=== PATIENT | female | born 1960 | race Caucasian/White ===

== ENCOUNTER → 2023-05-15 17:05 | Outpatient (BNVA) | payer MEDICARE, SELFPAY | PROVIDERS: PCP Nurse Practitioner; Referring Provider Nurse Practitioner; Visit Provider Internal Medicine Pulmonary Disease | DX: R06.02 Shortness of breath (principal); E88.01 Alpha-1-antitrypsin deficiency; J43.2 Centrilobular emphysema | CPT/HCPCS: 82785; 85025; 86003; 99204 ==

== ENCOUNTER 2023-06-07 12:31 | Outpatient (CLI) | payer MEDICARE, MEDICAID, SELFPAY ==
[2023-06-07 13:09] VITALS: PULSE 108; RESP 20; O2SAT 94
[2023-06-07] MEDS: albuterol 2.5 mg/3 mL Neb INHALATION (13:11)
[2023-06-07 13:13] VITALS: PULSE 121
== END 2023-06-07 12:32 | disposition home or self-care (01) ==
PROVIDERS: PCP Nurse Practitioner; Visit Provider Internal Medicine Pulmonary Disease
DX: J44.9 Chronic obstructive pulmonary disease, unspecified (principal)
CPT/HCPCS: 94060; 94618; 94726; 94729; J7613

== ENCOUNTER 2023-06-13 10:04 | Oncology outpatient (recurring) (ONCR) | payer MEDICARE, MEDICAID, SELFPAY ==
[2023-05-22] MEDS: [UNRECOGNIZED DRUG - MIXTURE] 235.800000000000011 MG IV (13:20)
[2023-05-22 13:49] VITALS: BP 122/65; PULSE 74; RESP 17; TEMP 36.8; O2SAT 94
[2023-05-30] MEDS: [UNRECOGNIZED DRUG - MIXTURE] 235.800000000000011 MG IV (12:02)
[2023-05-30 12:38] VITALS: BP 137/76; PULSE 74; RESP 16; TEMP 36.3; O2SAT 98
[2023-05-30 12:41] VITALS: BP 112/74; PULSE 78; RESP 16; TEMP 36.4; O2SAT 93
[2023-05-30 12:42] VITALS: BP 112/14; PULSE 74; RESP 16; TEMP 36.4; O2SAT 93
[2023-06-07 14:41] VITALS: BP 111/74; PULSE 88; RESP 16; TEMP 36.4; O2SAT 97
[2023-06-07] MEDS: [UNRECOGNIZED DRUG - MIXTURE] 320 MG IV (14:56)
[2023-06-07 15:36] VITALS: BP 112/68; PULSE 74; RESP 16; TEMP 36.2
[2023-06-13 10:49] VITALS: BP 126/77; PULSE 94; RESP 16; TEMP 36.8; O2SAT 92
[2023-06-13] MEDS: [UNRECOGNIZED DRUG - MIXTURE] 235.800000000000011 MG IV (11:35)
[2023-06-13 12:02] VITALS: BP 142/77; PULSE 74; TEMP 36.2; O2SAT 92
== END 2023-06-13 23:59 | disposition home or self-care (01) ==
PROVIDERS: PCP Nurse Practitioner; Visit Provider Internal Medicine Pulmonary Disease
DX: E88.01 Alpha-1-antitrypsin deficiency (principal); Z53.9 Procedure and treatment not carried out, unspecified reason
CPT/HCPCS: 96365; 96374; J0256

== ENCOUNTER 2023-07-17 13:03 | Oncology outpatient (recurring) (ONCR) | payer MEDICARE, MEDICAID, SELFPAY ==
[2023-06-20] MEDS: [UNRECOGNIZED DRUG - MIXTURE] 240 MG IV (14:27)
[2023-06-20 14:53] VITALS: BP 113/77; PULSE 68; RESP 18; O2SAT 97
[2023-06-27] MEDS: [UNRECOGNIZED DRUG - MIXTURE] 240 MG IV (15:32)
[2023-06-27 15:54] VITALS: PULSE 91; RESP 16; TEMP 36.7; O2SAT 95
[2023-07-03 12:56] VITALS: BP 130/78; PULSE 78; RESP 16; TEMP 36.4; O2SAT 92
[2023-07-03] MEDS: [UNRECOGNIZED DRUG - MIXTURE] 240 MG IV (13:58)
[2023-07-03 14:40] VITALS: BP 113/70; PULSE 94; RESP 16; TEMP 36.4; O2SAT 92
[2023-07-17 13:26] VITALS: BP 115/76; PULSE 67; RESP 16; TEMP 36.8; O2SAT 92
[2023-07-17] MEDS: [UNRECOGNIZED DRUG - MIXTURE] 240 MG IV (13:58)
[2023-07-17] MEDS: sodium chloride 0.9% 250 ML 75 ML IV (13:58)
[2023-07-17 14:39] VITALS: BP 96/67; PULSE 77; RESP 18; TEMP 36.7; O2SAT 94
== END 2023-07-17 23:59 | disposition home or self-care (01) ==
PROVIDERS: PCP Nurse Practitioner; Visit Provider Internal Medicine Pulmonary Disease
DX: E88.01 Alpha-1-antitrypsin deficiency (principal); Z53.9 Procedure and treatment not carried out, unspecified reason
CPT/HCPCS: 96365; J0256; J7050

== ENCOUNTER 2023-08-15 12:45 | Oncology outpatient (recurring) (ONCR) | payer MEDICARE, MEDICAID, SELFPAY | END 2023-08-17 23:59 | disposition home or self-care (01) | LOC: ONCMED 08-23 10:06 | PROVIDERS: PCP Nurse Practitioner; Visit Provider Internal Medicine Pulmonary Disease | DX: E88.01 Alpha-1-antitrypsin deficiency (principal); J43.2 Centrilobular emphysema; J44.1 Chronic obstructive pulmonary disease with (acute) exacerbation | CPT/HCPCS: 99214 ==

== ENCOUNTER 2025-01-05 14:39 | Emergency (ER) | payer MEDICARE, MEDICAID, SELFPAY ==
[2025-01-05 14:43] VITALS: BP 125/82; PULSE 78; RESP 17; TEMP 36.7; O2SAT 93; BMI 27.1
--- NOTE | 2025-01-05 14:59 | XRR_ITS ---
PROCEDURE INFORMATION: Exam: XR Chest Exam date and time: 01/05/2025 3:19 PM Age: 64 years old Clinical indication: Cough and shortness of breath TECHNIQUE: Imaging protocol: Radiologic exam of the chest. Views: 1 view. COMPARISON: l spine FINDINGS: Lungs: Scarring in the lung bases. Pleural spaces: No pleural effusion or pneumothorax noted. Heart/Mediastinum: There is no cardiomegaly. Bones/joints: No acute osseous abnormality. Intraperitoneal space: There is no free intraperitoneal gas. XR/XR chest 1V portable 19033 IMPRESSION: No acute findings.
--- OUTSIDE RECORDS SUMMARY | 2025-01-05 15:30 | XMS_ITS | Clinical Summary ---
Author Organization [facility] [address] [facility] Address [address] [place] [address] Phone Care Team Providers Care Supervisor Special Education Name Role Phone Cc Amb, Physician Pc MD Primary Care Provider Un available Allergies Active Allergy Reactions Criticality Noted Date Comments Doxycycline Rash Low 10/23/2022 Vancomycin Itching Low 10/23/2022 Medications multivitamin (DAILY-ELVIS) tablet Take 1 Tablet by mouth daily. Active proteinase inhibitor (human) 1,000 mg Recon Soln 60 mg/kg Inject 60 mg/kg by intravenous injection every 7 days. Active calcium citrate-vitamin d3 (CITRACAL D MAX) 315 mg-6.25 mcg (250 unit) Tablet Take by mouth daily. Active magnesium oxide (MAG-OX) 400 mg (241.3 mg magnesium) tablet Take 400 mg by mouth daily. Active viatamin B complex-vitamin V-cueqqpcj-wmpo- folic acid 106 mg iron- 1 mg Tablet Take 1 Tablet by mouth daily. Active CYANOCOBALAMIN, VITAMIN B-12, ORAL Take by mouth. Activ e albuterol sulfate HFA 90 mcg/actuation aerosol inhaler Take 2 Puffs by inhalation every 6 hours as needed for Shortness of Breath, Respiration or Wheezing. 8.5 Gram 1 3 Active OTHERIndications :Zzphe-8-jyonptm psin deficiency,Recur rent upper respiratory infection (URI),Rhonchus Afflovest to use twice daily to assist in loosening of secretions for expectoration. 1 Each 3 Active Additional Information Patient not taking.Reported on 10/17/2023 shower chair DME EQUIPMENTIndicat ions:Shortness of breath,Generaliz ed muscle weakness by See Admin Instructions route daily. 1 Each 3 Active Additional Information Patient not taking.Reported on 10/17/2023 fluticasone-umec lidinium-vilante rol (Trelegy Ellipta) 100-62.5-25 mcg Disk with Device Take 1 Puff by inhalation daily. 60 Each 3 3 Active ipratropium-albu teroL (DUONEB) 0.5 mg-3 mg(2.5 mg base)/3 mL Solution for Nebulization Take 3 mL by inhalation 4 times daily. 360 mL 5 3 Active Miscellaneous Medical Supply Plasma infusions either weekly and/or biweekly 1 Each 3 Active hydrOXYzine HCL (ATARAX) 25 mg tablet Take 25 mg by mouth daily at bedtime. 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 Encounters Date Type Department Care Team Description 01/05/2025 Telephone [facility] Pulmonology [facility] [address] [place] [id number] RuthrChapito MD [facility] 12/17/2024 Telephone [facility] Pulmonology [place] [place] [id number] DatarChapito MD [employer] 12/02/2024 External Device Data [facility] Provider, Abstract 10/21/2024 External Device Data [facility] Provider, Abstract from Last 3 Months Social History Tobacco Use Types Packs/Day Years Used Date Smoking Tobacco: Never Tobacco Cessation:Counseling Given: No Alcohol Use Standard Drinks/Week Comments Not Currently 0 (1 standard drink = 0.6 oz pur e alcohol) Comments No Sex and Gender Information Value Date Recorded Sex Assigned at Not on file Legal Sex Female 11:16 AM CDT Gender Identity Not on file Sexual Orientation Not on file Last Filed Vital Signs Vital Sign Reading Time Taken Comments Blood Pressure 110/62 02/06/2023 3:23 PM RESIDENTIAL APPRAISER Pulse 110 02/06/2023 3:23 PM RESIDENTIAL APPRAISER Temperature 36.4 C (97.6 F) 02/06/2023 3:23 PM RESIDENTIAL APPRAISER Respiratory Rate 22 02/06/2023 3:23 PM RESIDENTIAL APPRAISER Oxygen Saturation 98% 02/06/2023 3:23 PM RESIDENTIAL APPRAISER Inhaled Oxygen Concentration - - Weight 59.9 kg (132 lb) 10/17/2023 10:57 AM CDT Height 161.3 cm (5' 3.5 ) 10/17/2023 10:57 AM CD T Body Mass Index 23.02 10/17/2023 10:57 AM CDT Plan of Treatment Health Maintenance Due Date Last Done Comments DTAP/TDAP/TD VACCINES (1 - Tdap) 1977 BREAST CANCER SCREENING 1998 COLORECTAL SCREENING 12/05/2003 Colorectal Cancer Screening 12/05/2003 FIT-DNA Q 3 years 12/05/2003 FIT/FOBT Q 1 year 12/05/2003 Flex Sig/CT Colonography Q 5 years 12/05/2003 PNEUMOCOCCAL VACCINE 50+ YEARS (1 of 1 - PCV) 12/05/19 09 RSV VACCINE (60+ or ) (1 - Risk 50-74 years 1-dose series) 2008 ZOSTER VACCINE (1 of 2) 2008 OSTEOPOROSIS SCREENING 12/05/2023 Medicare Ad[place] ([place]) Prev entative Visit/Annual Wellness Visit 03/19/2024 INFLUENZA VACCINE (#1) 2024 Insurance MEDICAID [facility] Care Teams Supervisor Special Education Relationship Specialty Start Date End Date Cc Tala, Physician Pc, MD PCP - General Family Practice 08/22/24
--- OUTSIDE RECORDS SUMMARY | 2025-01-05 15:30 | XMS_ITS | Encounter Summary ---
Author Organization [facility] Address [address] [place] [address] Care Team Providers Care Glost Kiln Placer Name Role Phone Cc Amb, Physician Pc Primary Care Provider Un available Reason for Visit * Reason Onset Date Comments [facility] 01/05/2025 Encounter Details Date Type Department Care Team (Late st Contact Info) Description 01/05/2025 Telephone [facility] Pulmonology [facility] [address] [place] [address] Datar, MD [place] [address] [place] [address] [facility] Social History Tobacco Use Types Packs/Day Years Used Date Smoking Tobacco: Never Alcohol Use Standard Drinks/Week Comments Not Currently 0 (1 standard drink = 0.6 oz pur e alcohol) Comments No Sex and Gender Information Value Date Recorded Sex Assigned at Not on file Legal Sex Female 11:16 AM CDT Gender Identity Not on file Sexual Orientation Not on file documented as of this encounter Miscellaneous Notes * Telephone Encounter - Kristin Castañeda - 01/05/2025 10:58 AM CDT Telephone Encounter - Patient: Ginette Date: 01/05/2025 Caller: Maki from [employer] Message: Maki from [employer] called regarding patient Ginette and requested a return call. Action Requested: Please return the call to [phone], option 1, then option 2. documented in this encounter Plan of Treatment Not on file documented as of this encounter Visit Diagnoses Not on filedocumented in this encounter Additional Health Concerns Assessment Noted Time PHQ-9 Depression Total Score: 6 10/24/19 23 3:01 PM CDT documented as of this encounter Care Teams Glost Kiln Placer Relationship Specialty Start Date End Date Cc Tala, Physician Pc, MD PCP - General Family Practice 08/22/24 documented as of this encounter
--- NOTE | 2025-01-05 17:04 | ED_ITS ---
HPI - URI/Sore Throat General: Chief Complaint: Upper Respiratory Infection Stated Complaint: low o2 Time Seen by Provider: 01/05/25 16:57 Source: patient Mode of arrival: ambulatory Limitations: no limitations History of Present Illness: Patient is a 64-year-old female with a history of alpha 1 antitrypsin deficiency here with a complaint of cough/chest congestion. She states symptoms have been present over the past several days. She was recently seen and placed on Augmentin and a steroid taper. Patient here today requesting a chest x-ray. Patient does follow-up with pulmonology in [place]. She is not requiring more than her baseline oxygen. MD elicited complaint: cough Onset (ago): day(s) Severity: moderate Description of mucous: clear Able to tolerate fluids by mouth: Yes Exacerbating factors: nothing Relieving factors: nothing Associated symptoms: Deny abdominal pain, chills, chest pain, diarrhea, fever(s), nausea or vomiting Treatments prior to arrival: antibiotics Related Data Home Medications ?Medication ?Instructions ?Recorded ?Confirmed oxygen-air delivery systems 05/15/23 01/02/25 Previous Rx's ?Medication ?Instructions ?Recorded alpha-1 proteinase inhib.(hum) 3,933 mg (78.66 mL) IV ONCE #1 ea 05/16/23 1,000 mg (+/-)/20 mL IV solution (Prolastin-C) hydroxyzine HCl 25 mg tablet See Rx Instructions .Rout e 10/17/23 .COMPLEX #90 tabs miscellaneous medical supply See Rx Instructions misce llaneous 11/06/23 .COMPLEX #1 ea fzjuyzyfwdpcfkv-bpdvatkgystmiwx-FM 5 ml PO QID PRN all ergy symptoms 04/15/24 2 mg-30 mg-10 mg/5 mL oral syrup #118 mL (Bromfed DM) fluticasone fur. 100 mcg-umeclid See Rx Instructions . Route 09/18/24 62.5 mcg-vilant 25 mcg .COMPLEX #60 ea inhalat.powder (Trelegy Ellipta) albuterol sulfate 90 mcg/actuation See Rx Instructions .Route 11/11/24 aerosol inhaler .COMPLEX #9 grams amoxicillin 875 mg-potassium 1 tab PO BID #20 tabs clavulanate 125 mg tablet prednisone 20 mg tablet See Rx Instructions PO DAILY #11 01/02/25 tabs Allergies Allergy/AdvReac Type Severity Reaction Status Date / Time vancomycin Allergy Intermediate numbness Verified 01/02/25 14:21 Review of Systems Const: Denies: fever(s), chills, body aches, fatigue or malaise Card: Denies: chest pain, palpitations, irregular heart rhythm, edema, lightheadedness, syncope or pre-syncope Resp: Reports: dyspnea (chronic), productive cough and chest congestion GI: Denies: abdominal pain, nausea, vomiting or diarrhea : Denies: flank pain, dysuria or hematuria Musc: Denies: extremity swelling PFSH ED PFSH: Medical History Emphysema lung Dywkp-1-ijkbywxdmcv deficiency COPD (chronic obstructive pulmonary disease) Family History Mother Pfmrq-0-ikjroylmofb deficiency CAD (coronary artery disease) Father Oyvbk-7-ltghucscwgq deficiency Cancer Diabetes Hypertension Social History Smoking and tobacco/nicotine status: never used tobacco/nicotine Alcohol intake: never Substance/Drug Use: never Lives independently: No Household members: children Housing: House Marital status: Number of children: 1 Pets and animals: Yes Pets & animals: cat(s) Physical Exam Const: COMMON NORMALS: no acute distress, average body habitus, patient oriented x3, no limitations, healthy appearing, alert and well nourished GENERAL APPEARANCE: cooperative Resp: COMMON NORMALS: normal respiratory effort and clear to auscultation bilaterally AUSCULTATION: clear to auscultation bilaterally Cardio: COMMON NORMALS: regular rate and regular rhythm RATE: regular rate RHYTHM: regular rhythm Neuro: COMMON NORMALS: patient oriented x3 SENSORIUM/ORIENTATION: Yes alert Course Vital Signs: Vital signs: Vital Signs Temperature 98.1 F 01/05/25 14:43 Pulse Rate 78 01/05/25 14:43 Respiratory Rate 17 01/05/25 14:43 Blood Pressure 125/82 01/05/25 14:43 Pulse Oximetry 93 01/05/25 14:43 Oxygen Delivery Me thod Room Air 01/05/25 14:43 MDM - URI/Sore Throat Medical Decision Making CXR obtained and unremarkable. Her vital signs are stable. She is not requiring additional oxygen apart from her baseline. Patient declines any further workup here in the emergency department and feels comfortable going home continuing current treatment plan of antibiotics and steroids. Plan will be to for follow-up with pulmonology which she has scheduled for January 20. Differential Diagnosis Likely upper respiratory infection, viral infection and bronchitis Medical Records I reviewed the patient's medical records. Lab Data Radiology Impressions Chest X-Ray 01/05/25 14:59 IMPRESSION: No acute findings. All radiology interpretation(s) finalized by discharge Discharge Plan Discharge Patient Disposition: Home Clinical Impression: Mclyw-2-hzjwtmjkkrf deficiency Condition: Stable Prescriptions: No Action (DME) oxygen-air delivery systems Device See Rx Instructions .Route Rx Instructions: As directed Prolastin-C 1,000 mg (+/-)/20 mL solution 3,933 mg IV ONCE Qty: 1 11RF Rx Instructions: Weekly Infusion hydroxyzine HCl 25 mg tablet See Rx Instructions .ROUTE .COMPLEX Qty: 90 1RF Dose Instruction: TAKE 1 TABLET BY MOUTH AT BEDTIME NEEDED FOR SLEEP Rx Instructions: TAKE 1 TABLET BY MOUTH AT BEDTIME NEEDED FOR SLEEP dnxhbgntsqbwuqt-zqsomgjxc-VA [Bromfed DM] 2-30-10 mg/5 mL syrup 5 ml PO QID PRN (Reason: allergy symptoms) Qty: 118 0RF prednisone 20 mg tablet See Rx Instructions PO DAILY Qty: 11 0RF Rx Instructions: orally daily; Take 2 tabs daily x 3 days Take 1 tab daily x 3 days Take 1/2 tab daily x 4 days amoxicillin-pot clavulanate 875-125 mg tablet 1 tab PO BID Qty: 20 0RF miscellaneous medical supply [facility] See Rx Instructions miscellaneous .COMPLEX Qty: 1 0RF Rx Instructions: Electric wheelchair Trelegy Ellipta 100-62.5-25 mcg blister with device See Rx Instructions .ROUTE .COMPLEX Qty: 60 6RF Dose Instruction: Inhale 1 puff by mouth once daily Rx Instructions: Inhale 1 puff by mouth once daily albuterol sulfate 90 mcg/actuation HFA aerosol inhaler See Rx Instructions .ROUTE .COMPLEX Qty: 9 2RF Dose Instruction: INHALE 2 PUFFS BY MOUTH EVERY 6 HOURS NEEDED FOR SHORTNESS OF BREATH FOR WHEEZING Rx Instructions: INHALE 2 PUFFS BY MOUTH EVERY 6 HOURS NEEDED FOR SHORTNESS OF BREATH FOR WHEEZING Discharge Orders: Discharge ED (Routine); Ordered 01/05/25 Ordered By: Leilani Malin Referrals: Barb Harding FNP [Primary Care Provider, Nurse Practitioner] Patient Instructions: Patient Portal & Michael Instructions Activity Restrictions/Additional Instructions: As we discussed, continue current antibiotic and steroid course. Plan to follow-up with your portfolio director in a few weeks as scheduled. You may return to the emergency department at any time for onset of worsening shortness of breath or difficulty breathing, requiring more oxygen than baseline, fevers, or any other concerns you may have. Print Language: Indonesian Coding Level of Care Code ED Tin Can Feeder for Michaelle Hillman
--- NOTE | 2025-01-05 17:22 | PC.NURSE ---
PT is declining any further testing. PT states she only wanted a chest xray
[2025-01-05 17:26] VITALS: PULSE 75; O2SAT 95
== END 2025-01-05 17:27 | disposition home or self-care (01) ==
PROVIDERS: Emergency Provider Physician Assistant; PCP Nurse Practitioner
DX: E88.01 Alpha-1-antitrypsin deficiency (principal); J44.9 Chronic obstructive pulmonary disease, unspecified
CPT/HCPCS: 71045; 99284

== ENCOUNTER 2025-01-12 13:06 | Oncology outpatient (recurring) (ONCR) | payer MEDICARE, MEDICAID, SELFPAY ==
[2024-12-30] MEDS: [UNRECOGNIZED DRUG - MIXTURE] 252 MG IV (14:28)
[2024-12-30 14:59] VITALS: BP 118/79; PULSE 85; TEMP 36.5; O2SAT 96
[2025-01-05 13:18] VITALS: BP 136/79; PULSE 66; RESP 16; TEMP 36.3; O2SAT 94
[2025-01-05] MEDS: [UNRECOGNIZED DRUG - MIXTURE] 250.2 MG IV (13:51)
[2025-01-05 14:18] VITALS: BP 114/66; PULSE 74; RESP 18; TEMP 36.5; O2SAT 98
[2025-01-12] MEDS: [UNRECOGNIZED DRUG - MIXTURE] 253.2 MG IV (13:41)
[2025-01-12 14:04] VITALS: BP 121/81; PULSE 100; RESP 17; TEMP 37; O2SAT 90
== END 2025-01-16 23:59 | disposition home or self-care (01) ==
PROVIDERS: PCP Nurse Practitioner; Visit Provider Internal Medicine Pulmonary Disease
DX: E88.01 Alpha-1-antitrypsin deficiency (principal); Z79.899 Other long term (current) drug therapy
CPT/HCPCS: 96365; J0256

== ENCOUNTER 2025-02-10 14:30 | Oncology outpatient (recurring) (ONCR) | payer MEDICARE, MEDICAID, SELFPAY ==
[2025-01-20] MEDS: [UNRECOGNIZED DRUG - MIXTURE] 253.8 MG IV (13:33)
[2025-01-20 13:40] VITALS: BP 126/67; BP 126/68; PULSE 80; RESP 17; TEMP 36.3; TEMP 36.4; O2SAT 95
[2025-01-26 13:52] VITALS: BP 114/68; PULSE 79; RESP 16; TEMP 37.2; O2SAT 95
[2025-01-26] MEDS: [UNRECOGNIZED DRUG - MIXTURE] 253.2 MG IV (14:15)
[2025-01-26 14:37] VITALS: BP 106/54; PULSE 68; RESP 16; TEMP 37.3; O2SAT 95
[2025-02-02] MEDS: [UNRECOGNIZED DRUG - MIXTURE] 253.2 MG IV (14:34)
[2025-02-02 14:58] VITALS: BP 115/70; PULSE 77; TEMP 36.6; O2SAT 95
[2025-02-10] MEDS: [UNRECOGNIZED DRUG - MIXTURE] 253.2 MG IV (14:48)
[2025-02-10 15:20] VITALS: BP 112/78; PULSE 88; RESP 17; TEMP 37.1; O2SAT 95
== END 2025-02-10 23:59 | disposition home or self-care (01) ==
PROVIDERS: PCP Nurse Practitioner; Visit Provider Internal Medicine Pulmonary Disease
DX: E88.01 Alpha-1-antitrypsin deficiency; Z79.899 Other long term (current) drug therapy; Z53.9 Procedure and treatment not carried out, unspecified reason
CPT/HCPCS: 96365; J0256

== ENCOUNTER 2025-03-03 13:13 | Oncology outpatient (recurring) (ONCR) | payer MEDICARE, MEDICAID, SELFPAY ==
[2025-02-19 13:58] VITALS: BP 120/85; PULSE 83; RESP 17; TEMP 36.2; O2SAT 97
[2025-02-19] MEDS: [UNRECOGNIZED DRUG - MIXTURE] 255 MG IV (14:15)
[2025-02-19 14:42] VITALS: BP 116/81; PULSE 75; TEMP 37; O2SAT 97
[2025-02-24 13:19] VITALS: BP 119/65; PULSE 58; RESP 18; TEMP 36.9; O2SAT 95
[2025-03-03 13:33] VITALS: BP 106/73; PULSE 83; TEMP 36.5; O2SAT 99
[2025-03-03 14:48] VITALS: BP 96/71; PULSE 71; RESP 16; TEMP 36.8; O2SAT 97
== END 2025-03-03 23:59 | disposition home or self-care (01) ==
PROVIDERS: PCP Nurse Practitioner; Visit Provider Internal Medicine Pulmonary Disease
DX: E88.01 Alpha-1-antitrypsin deficiency; Z79.899 Other long term (current) drug therapy; Z53.9 Procedure and treatment not carried out, unspecified reason
CPT/HCPCS: 96365; J0256

== ENCOUNTER 2025-03-17 13:30 | Oncology outpatient (recurring) (ONCR) | payer MEDICARE, MEDICAID, SELFPAY ==
[2025-03-10 14:35] VITALS: BP 97/68; PULSE 66; RESP 17; TEMP 36.2; O2SAT 95
[2025-03-10 15:22] VITALS: BP 113/62; PULSE 71; RESP 16; TEMP 36.3; O2SAT 97
[2025-03-17 13:53] VITALS: BP 107/70; PULSE 66; RESP 16; TEMP 36.4; O2SAT 97
[2025-03-17 14:30] VITALS: BP 121/70; PULSE 64; RESP 16; TEMP 36.6; O2SAT 93
== END 2025-03-18 23:59 | disposition home or self-care (01) ==
PROVIDERS: PCP Nurse Practitioner; Visit Provider Internal Medicine Pulmonary Disease
DX: E88.01 Alpha-1-antitrypsin deficiency; Z79.899 Other long term (current) drug therapy; Z53.9 Procedure and treatment not carried out, unspecified reason
CPT/HCPCS: 96365; J0256